=== PATIENT | male | born 1995 | race Caucasian/White ===

== ENCOUNTER 2021-06-25 18:37 | Emergency (ER) | payer OTHER, SELFPAY ==
--- NOTE | ~2021-06-25 | XR_ITS ---
EXAMINATION: XR WRIST, RIGHT CLINICAL INFORMATION: Pain after fall. COMPARISON: Radiograph of the right hand dated from 12/15/2010. TECHNIQUE: PA, lateral, and oblique views of the right wrist. FINDINGS: No evidence of acute fractures or malalignment. Carpal rows and scapholunate interval are preserved. Chronic deformity of the fifth metacarpal shaft, likely related with an old injury. No radiopaque foreign bodies. Mild asymmetric soft tissue edema along the medial surface of the wrist. XR/XR wrist RT 2V IMPRESSION: No acute fractures or malalignment.
--- NOTE | ~2021-06-25 | XR_ITS ---
EXAMINATION: CHEST 2 VIEWS CLINICAL INFORMATION: PAIN AFTER FALL . COMPARISON: No recent pertinent prior studies are available for comparison. TECHNIQUE: PA and lateral views of the chest obtained. FINDINGS: The lungs are well expanded. No focal infiltrate, effusion, edema, or pneumothorax. Cardiac and mediastinal silhouettes are within normal limits for technique. No acute bony abnormality seen. No displaced rib fracture seen. XR/XR chest 2V IMPRESSION: No evidence of acute disease
[2021-06-25 19:57] VITALS: BP 112/76; PULSE 98; RESP 16; TEMP 37.3; O2SAT 96; BMI 27.5
[2021-06-25 22:21] VITALS: BP 145/84; PULSE 70; RESP 14; TEMP 36.9; O2SAT 100
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
[2021-06-25] MEDS: Ibuprofen 600 MG TABLET PO (23:07)
[2021-06-25] MEDS: Diphth,Pertus(ACell),Tet Adult 0.5 ML SYRINGE IM (23:07)
[2021-06-25] MEDS: Bacitracin Oint 14 GM TUBE 1 APPL TOPICAL (23:08)
== END 2021-06-25 23:14 | disposition home or self-care (01) ==
PROVIDERS: Emergency Provider Emergency Medicine Emergency Medical Services
DX: S20.219A Contusion of unspecified front wall of thorax, initial encounter (principal); S63.501A Unspecified sprain of right wrist, initial encounter; S50.811A Abrasion of right forearm, initial encounter; S80.212A Abrasion, left knee, initial encounter; W05.2XXA Fall from non-moving motorized mobility scooter, initial encounter; Y93.9 Activity, unspecified; Y92.481 Parking lot as the place of occurrence of the external cause; Y99.9 Unspecified external cause status
CPT/HCPCS: 71046; 73100; 90471; 90715; 99284

== ENCOUNTER 2023-04-29 13:13 | Emergency (ER) | payer OTHER, SELFPAY ==
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
[2023-04-29 14:29] VITALS: BP 136/74; PULSE 63; RESP 16; TEMP 36.8; O2SAT 97
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
[2023-04-29 17:18] VITALS: BP 111/65; PULSE 60; RESP 16; O2SAT 99
== END 2023-04-29 17:20 | disposition home or self-care (01) ==
PROVIDERS: Emergency Provider Emergency Medicine
DX: S06.0X0A Concussion without loss of consciousness, initial encounter (principal); S29.011A Strain of muscle and tendon of front wall of thorax, initial encounter; V18.0XXA Pedal cycle driver injured in noncollision transport accident in nontraffic accident, initial encounter; Y93.55 Activity, bike riding; Y92.414 Local residential or business street as the place of occurrence of the external cause; Y99.9 Unspecified external cause status
CPT/HCPCS: 70450; 71045; 99282; 99284

== ENCOUNTER 2025-02-08 21:05 | Emergency (ER) | payer OTHER, SELFPAY ==
[2025-02-08 21:06] VITALS: BP 150/84; PULSE 80; RESP 17; TEMP 36.9; O2SAT 99; BMI 30.2
[2025-02-09 00:01] VITALS: BP 156/93; PULSE 62; RESP 16; TEMP 36.4; O2SAT 99
--- NOTE | 2025-02-09 00:23 | ED_ITS ---
HPI - Dental/Oral General Chief complaint: Dental/Oral Stated complaint: Mouth Infection, Mouth Pain Time Seen by Provider: 02/09/25 00:12 History of Present Illness HPI Narrative: Patient is a 29-year-old male presents today with having toothache. Had an infected bottom canine to 3 weeks ago. Complaining of pain. Patient has a dentist but has not seen him. Took some ibuprofen with moderate relief. Came to the ED wanting some antibiotics. No change in voice. No difficulty swal lowing. No recent tooth extraction no history of diabetes Related Data Previous Rx's ?Medication ?Instructions ?Recorded acetaminophen 500 mg tablet 1,000 mg (2 x 500 mg) PO QID PRN 04/29/23 (Tylenol Extra Strength) fever or pain #14 tabs cyclobenzaprine 10 mg tablet 10 mg PO Q8H #14 tabs 04/29/23 clindamycin HCl 300 mg capsule 300 mg PO Q6H #20 caps 02/09/25 ibuprofen 400 mg tablet 400 mg PO Q6H PRN pain #20 tabs 02/09/25 Allergies Allergy/AdvReac Type Severity Reaction Status Date / Time amoxicillin Allergy Hives Verified 02/08/25 21:11 Review of Systems Review of Systems: No fever no chills Yes all other systems are reviewed and are negative [facility] Past Medical History Attestation statement: The following information was validated with the patient. Medical History Asthma Social History Social History Alcohol intake: never Patient Tobacco Use Status: Current everyday Tobacco user Smoked in Last 30 Days: Yes Use of substances other than those prescribed or required for medical reasons: No Advance Directives: No Advance Directives Information Provided: Yes Do you have a plan to hurt others: No Plan Physical Exam Vital Signs: Vital Signs: Last Vital Signs Temp 97.6 F 02/09/25 00:01 Pulse 62 02/09/25 00:01 Resp 16 02/09/25 00:01 BP 156/93 H 02/09/25 00:01 Pulse Ox 99 02/09/25 00:01 O2 Del Method Room Air 02/09/25 00:01 BMI result Body Mass Index 30.2 Appearance: Alert. Oriented X3. No acute distress. Eyes: Pupils equal, round and reactive to light. ENT: Pharynx normal. No gross cavities noted. The floor of the mouth was soft. There is no abscess palpable in the gums. Patient complaining of pain to the right lower canine area Neck: Normal inspection. Neck supple. No lymph nodes noted. No crepitus CVS: Normal heart rate and rhythm. Pulses normal. Normal S1 and S2 Respiratory: No respiratory distress. Breath sounds normal. No Wheezing. No rales Abdomen: Soft and nontender. No rigidity. No distention. good BS x4 Skin: Skin warm and dry. Normal skin color. Normal skin turgor. Extremities: No lower extremity edema. Neurovascular intact to all extremities. No Lacerations. No Rash Neuro: Oriented X 3. No motor deficit. No sensory deficit. Moving all extermities. No slurred speech Medical Decision Making Medical Decision Making MDM Narrative: Well-appearing no acute distress. No signs of Romario's angina. Patient is back of the mouth was normal. There is no pain on palpation of the floor of the mouth. There is mild pain on palpation the canine on the right lower jaw. Otherwise well-appearing no distress. Will start patient on clindamycin as he has an allergy to amoxicillin. In stable condition. Differential Diagnosis Differential Diagnoses: The differential diagnosis associated with the presentation includes Admission/Observation Consideration of admission/observation: Escalation of care including admission/observation considered Social Determinants Patient?s care significantly limited by Social Determinants of Health including: Problems related to primary support group Discharge Plan Discharge Clinical Impression: Toothache Patient Disposition: Home, Self-Care Instructions: Toothache (ED) Prescriptions: New clindamycin HCl 300 mg capsule 300 mg PO Q6H Qty: 20 0RF ibuprofen 400 mg tablet 400 mg PO Q6H PRN (Reason: pain) Qty: 20 0RF No Action acetaminophen [Tylenol Extra Strength] 500 mg tablet 1,000 mg PO QID PRN (Reason: fever or pain) Qty: 14 0RF cyclobenzaprine 10 mg tablet 10 mg PO Q8H Qty: 14 0RF Referrals: Zach Burdick MD [Primary Care Provider] - (Follow-up with your dentist in 2-3 days.) Print Language: Dominican
[2025-02-09] MEDS: Ibuprofen 400 MG TABLET PO (01:41)
[2025-02-09] MEDS: Clindamycin HCL 300 MG CAPSULE PO (01:41)
[2025-02-09 01:44] VITALS: BP 144/88; PULSE 54; RESP 16; TEMP 36.5; O2SAT 99
== END 2025-02-09 01:45 | disposition home or self-care (01) ==
PROVIDERS: Emergency Provider Emergency Medicine Emergency Medical Services; PCP Internal Medicine
DX: K08.89 Other specified disorders of teeth and supporting structures (principal)
CPT/HCPCS: 99283; 99284